=== PATIENT | female | born 1945 | race Caucasian/White ===

== ENCOUNTER 2023-05-15 07:06 | Day surgery (SDC) | payer OTHER ==
[2023-05-09 14:10] VITALS: BMI 21.6
[2023-05-15] MEDS ORDERED: LIDOCAINE 1% P/F 10 MG/ML VIAL ONE (07:30)
[2023-05-15] MEDS ORDERED: BSS (NA/CA/MG/K) BALANCED SALT SOLUTION OPHTH SOLN 15 ML BOTTLE ONE ×2 (07:30→07:31)
[2023-05-15] MEDS ORDERED: CARBACHOL 0.01% INTRA-OCULAR 1.5 ML VIAL ONE (07:31)
[2023-05-15] MEDS ORDERED: NEO/POLYMYX B SULF/DEXAMETH OPHTHALMIC 5ML BOTTLE ONE (07:31)
[2023-05-15] MEDS ORDERED: TETRACAINE 0.5% OPHTH SOLN 2 ML BOTTLE ONE (07:31)
[2023-05-15] MEDS: CIPROFLOXACIN 0.3% EYE DROPS 5 ML BOTTLE ONE ×3 (07:40→07:50)
[2023-05-15] MEDS: TROPICAMIDE 1% OPHTH SOLN 15 ML BOTTLE ONE ×3 (07:40→07:50)
[2023-05-15] MEDS: CYCLOPENTOLATE 2% OPHTH SOLN 2 ML BOTTLE ONE ×3 (07:40→07:50)
[2023-05-15] MEDS: PHENYLEPHRINE 2.5% OPTHALMIC DROP 2ML BOTTLE ONE ×3 (07:40→07:50)
[2023-05-15] MEDS ORDERED: MIDAZOLAM HCL 2 MG/2 ML SINGLE DOSE VIAL ONE (08:09)
[2023-05-15 08:56] VITALS: PULSE 75; RESP 18; TEMP 97.8
[2023-05-15 09:18] VITALS: BP 122/72
[2023-05-15] MEDS ORDERED: EPINEPHrine/PF 1 MG/1 ML (1:1,000) AMPULE ONE (10:27)
== END 2023-05-15 09:29 | disposition home or self-care (01) ==
LOC: FASU 07:06
PROVIDERS: ATTEND Ophthalmology
PROC: 08RK3JZ Replacement of Left Lens with Synthetic Substitute, Percutaneous Approach (ICD-10-PCS; principal; 2023-05-15 08:28)
DX: H26.8 Other specified cataract (principal)
CPT/HCPCS: 66984; V2632

== ENCOUNTER 2023-07-09 08:09 | Day surgery (SDC) | payer OTHER ==
[2023-07-02 16:01] VITALS: BMI 21.6
[2023-07-09] MEDS: TROPICAMIDE 1% OPHTH SOLN 15 ML BOTTLE ONE ×3 (08:25→08:35)
[2023-07-09] MEDS: CIPROFLOXACIN 0.3% EYE DROPS 5 ML BOTTLE ONE ×3 (08:25→08:35)
[2023-07-09] MEDS: PHENYLEPHRINE 2.5% OPTHALMIC DROP 2ML BOTTLE ONE ×3 (08:25→08:35)
[2023-07-09] MEDS: CYCLOPENTOLATE 2% OPHTH SOLN 2 ML BOTTLE ONE ×3 (08:25→08:35)
[2023-07-09] MEDS ORDERED: TETRACAINE 0.5% OPHTH SOLN 2 ML BOTTLE ONE (08:34)
[2023-07-09] MEDS ORDERED: EPINEPHrine/PF 1 MG/1 ML (1:1,000) AMPULE ONE (08:34)
[2023-07-09] MEDS ORDERED: LIDOCAINE 1% P/F 10 MG/ML VIAL ONE (08:34)
[2023-07-09] MEDS ORDERED: LIDOCAINE HCL/PF 1% SDV 5ML VIAL ONE (08:34)
[2023-07-09] MEDS ORDERED: NEO/POLYMYX B SULF/DEXAMETH OPHTHALMIC 5ML BOTTLE ONE (08:34)
[2023-07-09] MEDS ORDERED: BSS (NA/CA/MG/K) BALANCED SALT SOLUTION OPHTH SOLN 15 ML BOTTLE ONE (08:34)
[2023-07-09] MEDS ORDERED: CARBACHOL 0.01% INTRA-OCULAR 1.5 ML VIAL ONE (08:34)
[2023-07-09] MEDS ORDERED: MIDAZOLAM HCL 2 MG/2 ML SINGLE DOSE VIAL ONE (09:47)
[2023-07-09 10:34] VITALS: RESP 18; TEMP 97
[2023-07-09 10:49] VITALS: BP 138/72; PULSE 78
== END 2023-07-09 11:02 | disposition home or self-care (01) ==
LOC: FASU 08:09
PROVIDERS: ATTEND Ophthalmology
PROC: 08RJ3JZ Replacement of Right Lens with Synthetic Substitute, Percutaneous Approach (ICD-10-PCS; principal; 2023-07-09 09:56)
DX: H26.8 Other specified cataract (principal)
CPT/HCPCS: 66984; V2632

== ENCOUNTER 2024-01-10 11:38 | Emergency (ER) | payer OTHER ==
[2024-01-10 11:47] VITALS: BP 148/88; PULSE 80; RESP 16; TEMP 98.9; BMI 21.6
== END 2024-01-10 15:10 | disposition home or self-care (01) ==
LOC: FER 11:38
DX: S92.302A Fracture of unspecified metatarsal bone(s), left foot, initial encounter for closed fracture (principal); M79.672 Pain in left foot; X50.1XXA Overexertion from prolonged static or awkward postures, initial encounter
CPT/HCPCS: 73610-TC-LT-FY; 73630-TC-LT; 99283-25